=== PATIENT | male | born 1965 | race Caucasian/White ===

== ENCOUNTER 2023-07-30 19:57 | Emergency (ER) | payer MEDICAID ==
[~2023-07-30] VITALS: Ht 167.6 cm; Wt 88.5 kg
[~2023-07-30 19:57] MED LIST: ASPI-1450 PO; GABA-1216 PO; IBUP-1506 PO; METF-1211 PO; METH-659 PO; METO25 PO; MULT-660 PO
[2023-07-30 20:24] VITALS: BP 139/94; PULSE 97; RESP 16; TEMP 98.7
[2023-07-30 20:45] LABS: BASOPHILS % (AUTO) 0.2 % (0.0-2.0); HEMATOCRIT 41.6 % (41-53); HEMOGLOBIN 14.2 g/dL (13.5-17.5); LYMPHOCYTES # (AUTO) 1.9 K/uL (1.0-4.8); LYMPHOCYTES % (AUTO) 21.9 % (22.0-44.0); MEAN CORPUSCULAR HEMOGLOBIN 30.3 pg (26.0-34.0); MEAN CORPUSCULAR HGB CONC 34.3 G/dL (31.0-37.0); MEAN CORPUSCULAR VOLUME 89 fL (80-100); MONOCYTES # (AUTO) 1.1 K/uL (0.1-1.0); MONOCYTES % (AUTO) 12.3 % (2.0-9.0); NEUTROPHILS # (AUTO) 5.6 K/uL (1.8-7.7); NEUTROPHILS % (AUTO) 64.6 % (40.0-70.0); PLATELET COUNT (AUTO) 300 K/uL (150-450); RED CELL DISTRIBUTION WIDTH 12.9 % (11.5-14.5); WHITE BLOOD COUNT (AUTO) 8.6 K/uL (4.5-11.0)
[2023-07-30 20:58] LABS: ANION GAP 8 mmol/L (8-16); CALCIUM, TOTAL 8.8 mg/dL (8.8-10.5); CARBON DIOXIDE 29 mmol/L (22-29); CHLORIDE 103 mmol/L (98-107); CREATININE 1.04 mg/dL (0.60-1.30); GLOMERULAR FILTR. RATE CALC > 60 mL/min (>60); GLUCOSE,RANDOM 113 mg/dL (70-110); SODIUM SERUM 140 mmol/L (136-145); UREA NITROGEN, BLOOD 18 mg/dL (7-18)
[2023-07-30 21:04] LABS: ALANINE AMINOTRANSFERASE 41 U/L (12-78); ALBUMIN 3.5 g/dL (3.4-5.0); ALKALINE PHOSPHATASE 87 U/L (46-116); ASPARTATE AMINOTRANSFERASE 21 U/L (15-37); BILIRUBIN,TOTAL 0.5 mg/dL (0.1-1.0); LIPASE 34 U/L (16-77)
[2023-07-30 21:52] LABS: APPEARANCE,URINE CLEAR (CLEAR); BILIRUBIN,URINE NEGATIVE (NEGATIVE); COLOR,URINE YELLOW (YELLOW); GLUCOSE, URINE (UA) NEGATIVE (NEGATIVE); KETONES,URINE TRACE mg/dL (NEGATIVE); LEUKOCYTE ESTERASE ,URINE NEGATIVE (NEGATIVE); NITRATE,URINE NEGATIVE (NEGATIVE); OCCULT BLOOD,URINE MODERATE (NEGATIVE); PROTEIN,URINE 100-200,SEE CONFIRM mg/dL (NEGATIVE); SPECIFIC GRAVITIY, URINE 1.049 (1.003-1.030)
[2023-07-30 21:58] LABS: SULFOSALICYLIC ACID,URINE 1+ (Negative)
[2023-07-30 21:59] LABS: BACTERIA,URINE None Seen /HPF (None Seen); MUCUS,URINE Few LPF (None Seen); SQUAMOUS EPITHELIAL CELL,UR None Seen /LPF (None Seen); WBC,URINE None Seen /HPF (0-5)
[2023-07-30] MEDS ORDERED: KETOROLAC TROMETHAMINE 30 MG/ML VIAL IVP ONE (22:30)
[2023-07-30] MEDS ORDERED: SODIUM CHLORIDE 0.9% 100 ML ONE (22:37)
[2023-07-30] MEDS ORDERED: IOHEXOL 350 MG/ML 100 ML VIAL ONE (22:37)
[2023-07-30] MEDS: FAMOTIDINE 20 MG/2 ML VIAL IVP ONE (22:55)
[2023-07-30] MEDS: ACETAMINOPHEN 500 MG TABLET PO ONE (22:56)
[2023-07-30] MEDS: ONDANSETRON HCL 4 MG/2 ML VIAL IVP ONE (22:56)
[2023-07-30] MEDS: KETOROLAC TROMETHAMINE 15 MG/ML VIAL IVP ONE (22:56)
[2023-07-30] MEDS: SODIUM CHLORIDE 0.9% 1,000 ML IV ONE (22:56)
[2023-07-31] MEDS ORDERED: AMOX1TAB16 PO (00:24)
[2023-07-31] MEDS: AMOX TR/POT CLAV 875 MG/125 MG TABLET PO ONE (00:32)
== END 2023-07-31 01:06 | disposition home or self-care (01) ==
LOC: EMS 19:58
DX: K52.9 Noninfective gastroenteritis and colitis, unspecified (principal); E11.9 Type 2 diabetes mellitus without complications; I10 Essential (primary) hypertension; Z98.890 Other specified postprocedural states
CPT/HCPCS: 99285; 74177; 96374; 96375; 96361; 80053; 81001; 83690; 85025; 36415; J3490; J1885; J2405; Q9967; J7030; J7050; 81002

== ENCOUNTER 2024-05-07 20:21 | Emergency (ER) | payer MEDICAID, OTHER ==
[~2024-05-07] VITALS: Ht 165.1 cm; Wt 90.0 kg
[~2024-05-07 20:21] MED LIST changes: +AMOX-457 PO
[2024-05-07 20:44] VITALS: BP 174/100; PULSE 0; RESP 16; TEMP 97.9; O2SAT 99
[2024-05-07 21:09] LABS: COVID AG,FIA SOURCE NASAL SWAB
[2024-05-07 21:16] LABS: BASOPHILS % (AUTO) 0.7 % (0.0-2.0); EOSINOPHILS % (AUTO) 1.6 % (1.0-6.0); HEMATOCRIT 42.2 % (41-53); HEMOGLOBIN 14.4 g/dL (13.5-17.5); LYMPHOCYTES # (AUTO) 2.5 K/uL (1.0-4.8); MEAN CORPUSCULAR HEMOGLOBIN 30.5 pg (26.0-34.0); MEAN CORPUSCULAR VOLUME 90 fL (80-100); MONOCYTES # (AUTO) 0.9 K/uL (0.1-1.0); NEUTROPHILS # (AUTO) 5.4 K/uL (1.8-7.7); NEUTROPHILS % (AUTO) 59.7 % (40.0-70.0); PLATELET COUNT (AUTO) 380 K/uL (150-450); RED CELL DISTRIBUTION WIDTH 12.9 % (11.5-14.5)
[2024-05-07 21:24] LABS: ANION GAP 5 mmol/L (8-16); CALCIUM, TOTAL 8.8 mg/dL (8.8-10.5); CARBON DIOXIDE 32 mmol/L (22-29); CHLORIDE 102 mmol/L (98-107); CREATININE 0.84 mg/dL (0.60-1.30); GLOMERULAR FILTR. RATE CALC > 60 mL/min (>60); GLUCOSE,RANDOM 130 mg/dL (70-110); POTASSIUM 3.8 mmol/L (3.5-5.1); SODIUM SERUM 139 mmol/L (136-145); UREA NITROGEN, BLOOD 14 mg/dL (7-18)
[2024-05-07 21:26] LABS: INFLUENZA TYPE A NEGATIVE FOR TYPE A (NEGATIVE); INFLUENZA TYPE B NEGATIVE FOR TYPE B (NEGATIVE); SARS-COV2 (COVID) ANTIGEN,FIA Negative (Negative)
[2024-05-07 21:33] LABS: TROPONIN I-HIGH SENSITIVITY 4 ng/L (<76)
[2024-05-07 21:35] LABS: B-TYPE NATRIURETIC PEPTIDE 12 pg/mL (0-100)
[2024-05-08] MEDS ORDERED: OXYM15SP63 NASAL (02:04)
[2024-05-08] MEDS ORDERED: BENZ-227 PO (02:04)
== END 2024-05-08 02:26 | disposition home or self-care (01) ==
LOC: EMS 20:21
DX: R07.89 Other chest pain (principal); E11.9 Type 2 diabetes mellitus without complications; I10 Essential (primary) hypertension; Z79.82 Long term (current) use of aspirin; Z79.899 Other long term (current) drug therapy; Z20.822 Contact with and (suspected) exposure to COVID-19
CPT/HCPCS: 71045; 80048; 83880; 84484; 85025; 87804; 93005; 99285; 36415-L1; 36415-TC

== ENCOUNTER 2024-12-13 14:16 | Inpatient (IN) | payer OTHER ==
[~2024-12-13] VITALS: Ht 165.1 cm; Wt 87.6 kg
[~2024-12-13 14:16] MED LIST changes: +BENZ-227 PO; +OXYM15SP63 NASAL
[2024-12-13] MEDS: SODIUM CHLORIDE 0.9% 1,000 ML IV ONE (14:46)
[2024-12-13 14:50] LABS: PLATELET COUNT (AUTO) 313 K/uL (150-450); RED BLOOD CELL COUNT(AUTO) 5.55 MIL/uL (4.50-5.90); RED CELL DISTRIBUTION WIDTH 13.8 % (11.5-14.5); WHITE BLOOD COUNT (AUTO) 9.1 K/uL (4.5-11.0)
[2024-12-13 14:55] LABS: CALCIUM, TOTAL 9.1 mg/dL (8.8-10.5); CREATININE 1.22 mg/dL (0.60-1.30); GLOMERULAR FILTR. RATE CALC > 60 mL/min (>60); GLUCOSE,RANDOM 176 mg/dL (70-110); SODIUM SERUM 139 mmol/L (136-145); UREA NITROGEN, BLOOD 19 mg/dL (7-18)
[2024-12-13 15:05] LABS: TROPONIN I-HIGH SENSITIVITY 8 ng/L (<76)
[2024-12-13] MEDS: METOPROLOL SUCCINATE 50 MG ER TABLET PO ONE (15:15)
[2024-12-13] MEDS: MAGNESIUM SULFATE 2 GM/WATER 50 ML IV ONE (15:16)
[2024-12-13] MEDS: RIVAROXABAN 20 MG TABLET PO ONE (15:19)
[2024-12-13] MEDS: POTASSIUM CHLORIDE 20 MEQ ER TABLET PO ONE (15:21)
[2024-12-13] MEDS: METOPROLOL TARTRATE 5 MG/5 ML VIAL IVP ONE ×2 (15:22→16:26)
[2024-12-13] MEDS ORDERED: ONDANSETRON HCL 4 MG/2 ML VIAL IVP PRN (16:15)
[2024-12-13] MEDS ORDERED: BISACODYL 10 MG RECTAL RECTAL SUPPOSITORY PR PRN (16:15)
[2024-12-13] MEDS ORDERED: HYDROCODONE/ACETAMINOPHEN 5-325 MG TABLET PO PRN (16:15)
[2024-12-13] MEDS ORDERED: MAGNESIUM HYDROXIDE SUSPENSION 30 ML UDCUP PO PRN (16:15)
[2024-12-13] MEDS ORDERED: ZOLPIDEM TARTRATE 5 MG TABLET PO PRN (16:15)
[2024-12-13] MEDS ORDERED: MORPHINE SULFATE 2 MG/ML SYRINGE IVP PRN (16:15)
[2024-12-13] MEDS ORDERED: ACETAMINOPHEN 325 MG TABLET PO PRN (16:15)
[2024-12-13 16:46] LABS: APPEARANCE,URINE CLEAR (CLEAR); GLUCOSE, URINE (UA) >=1000 mg/dL (NEGATIVE); LEUKOCYTE ESTERASE ,URINE NEGATIVE (NEGATIVE); NITRATE,URINE NEGATIVE (NEGATIVE); OCCULT BLOOD,URINE SMALL (NEGATIVE); PH,URINE DRUG SCREEN 5.5 (5.0-8.0); SPECIFIC GRAVITIY, URINE 1.016 (1.003-1.030)
[2024-12-13 16:53] LABS: AMPHET/METH SCREEN,URINE NEGATIVE (NEGATIVE); BARBITURATE SCREEN, URINE NEGATIVE (NEGATIVE); CANNABINOID SCREEN,URINE NEGATIVE (NEGATIVE); COCAINE SCREEN,URINE NEGATIVE (NEGATIVE); METHADONE SCREEN, URINE NEGATIVE (NEGATIVE)
[2024-12-13 16:57] LABS: ALCOHOL, URINE DRUG SCREEN NEGATIVE (NEGATIVE)
[2024-12-13 17:13] LABS: HYALINE CASTS, URINE 0-2 /LPF (None Seen); SQUAMOUS EPITHELIAL CELL,UR Rare /LPF (None Seen)
[2024-12-13 20:35] VITALS: BP 100/78; PULSE 85; RESP 20; TEMP 97.9; O2SAT 97
[2024-12-13] MEDS: METOPROLOL TARTRATE 25 MG TABLET PO SCH (21:00)
[2024-12-13] MEDS: OXYMETAZOLINE HCL 0.05% 15 ML NASAL SPRAY NASAL SCH (21:13)
[2024-12-13] MEDS: GABAPENTIN 100 MG CAPSULE PO SCH (21:13)
[2024-12-13] MEDS: DOCUSATE SODIUM 100 MG CAPSULE PO SCH (21:13)
[2024-12-13] MEDS: ASPIRIN 81 MG CHEWABLE TABLET PO SCH (21:13)
[2024-12-14] VITALS (7 sets, daily range): BP systolic 108–129; BP diastolic 65–92; PULSE 68–79; RESP 17–20; TEMP 97.2–98.4; O2SAT 94–98
[2024-12-14 06:08] LABS: CALCIUM, TOTAL 8.0 mg/dL (8.8-10.5); CREATININE 1.08 mg/dL (0.60-1.30); GLOMERULAR FILTR. RATE CALC > 60 mL/min (>60); GLUCOSE,RANDOM 147 mg/dL (70-110); SODIUM SERUM 139 mmol/L (136-145); UREA NITROGEN, BLOOD 16 mg/dL (7-18)
[2024-12-14 06:25] LABS: PLATELET COUNT (AUTO) 284 K/uL (150-450); RED BLOOD CELL COUNT(AUTO) 5.06 MIL/uL (4.50-5.90); RED CELL DISTRIBUTION WIDTH 14.0 % (11.5-14.5); WHITE BLOOD COUNT (AUTO) 7.2 K/uL (4.5-11.0)
[2024-12-14] MEDS: PANTOPRAZOLE SODIUM 40 MG DR TABLET PO SCH (08:18)
[2024-12-14] MEDS ORDERED: POTASSIUM CHL 10 MEQ/WATER 50 ML IV PRN (10:45)
[2024-12-14] MEDS: POTASSIUM CHLORIDE 20 MEQ ER TABLET PO PRN (14:12)
[2024-12-14] MEDS: RIVAROXABAN 20 MG TABLET PO SCH (17:45)
[2024-12-15 03:49] VITALS: BP 153/95; PULSE 68; RESP 18; TEMP 97.3; O2SAT 97
[2024-12-15 06:11] LABS: PLATELET COUNT (AUTO) 262 K/uL (150-450); RED BLOOD CELL COUNT(AUTO) 4.73 MIL/uL (4.50-5.90); RED CELL DISTRIBUTION WIDTH 13.6 % (11.5-14.5); WHITE BLOOD COUNT (AUTO) 7.0 K/uL (4.5-11.0)
[2024-12-15 06:56] LABS: CALCIUM, TOTAL 8.2 mg/dL (8.8-10.5); CREATININE 0.84 mg/dL (0.60-1.30); GLOMERULAR FILTR. RATE CALC > 60 mL/min (>60); GLUCOSE,RANDOM 108 mg/dL (70-110); SODIUM SERUM 139 mmol/L (136-145); UREA NITROGEN, BLOOD 15 mg/dL (7-18)
[2024-12-15 07:36] VITALS: BP 147/93; PULSE 69; RESP 18; TEMP 97.3; O2SAT 98
[2024-12-15 11:11] VITALS: BP 125/87; PULSE 65; RESP 18; TEMP 98.2; O2SAT 98
[2024-12-15] MEDS ORDERED: RIVA20TA PO (12:53)
[2024-12-15] MEDS ORDERED: METO25 PO (12:53)
== END 2024-12-15 14:00 | disposition home or self-care (01) | DRG 201 ==
LOC: EMS 14:37 → EDH 16:14 → 5S 20:19
PROVIDERS: ADMIT Internal Medicine; ATTEND Internal Medicine
DX: I48.91 Unspecified atrial fibrillation (principal); E11.40 Type 2 diabetes mellitus with diabetic neuropathy, unspecified; E78.5 Hyperlipidemia, unspecified; G89.29 Other chronic pain; E87.6 Hypokalemia; E83.42 Hypomagnesemia; J30.9 Allergic rhinitis, unspecified; I10 Essential (primary) hypertension; Z79.01 Long term (current) use of anticoagulants; Z79.84 Long term (current) use of oral hypoglycemic drugs; Z79.899 Other long term (current) drug therapy
CPT/HCPCS: 71045; 80048; 80307; 81001; 83735; 83880; 84132; 84443; 84484; 85025; 85610; 85730; 93005; 93306; 96365; 96375; 99291; G0480; J3475; J3490; 36415-L1; 36415-TC